=== PATIENT | female | born 1970 | race Two or more races ===

== ENCOUNTER 2018-09-18 14:21 | Day surgery (SDC) | payer OTHER ==
[2018-09-18] VITALS (13 sets, daily range): BP systolic 108–136; BP diastolic 52–68; PULSE 84–124; RESP 13–26; Ht 144.8 cm; Wt 52.2 kg
[~2018-09-18] VITALS: Ht 144.8 cm; Wt 52.2 kg
--- NOTE | 2018-09-18 07:39 | HPN ---
Date/Time of Note Date/Time of Note DATE: 09/18/18 TIME: 07:39 Interval H&P Admission Note Pt. seen H&P reviewed: No system changes IHSAN LOZANO MD Sep 18, 2018 07:39
[~2018-09-18 14:21] MED LIST: EPHEDrine 50 MG INJ ONE; PROPOFOL 200 MG INJ ONE; ROCURONIUM 50 MG INJ ONE; SEVOFLURANE 15 MIN ONE
[2018-09-18] MEDS ORDERED: LISI10TA2 PO (14:28)
[2018-09-18] MEDS ORDERED: HYDR25TA6 PO (14:29)
[2018-09-18] MEDS ORDERED: BUPR-75 PO (14:29)
[2018-09-18] MEDS ORDERED: ESCI10TA PO (14:30)
[2018-09-18] MEDS ORDERED: ARIP2TAB17 PO (14:32)
--- NOTE | 2018-09-18 16:14 | PREAC ---
Date/Time of Note Date/Time of Note DATE: 09/18/18 TIME: 16:12 Anesthesia Eval and Record Evaluation Time Pre-Procedure Interview DATE: 09/18/18 TIME: 16:12 Age 48 Sex female NPO: 8 hrs Preoperative diagnosis Rt Trimalleolar Ankle Planned procedure Rt ankle Arthroscopy, ORIF Past Medical History Past Medical History: Includes Cardio: HTN Surgery & Anesthesia Issues No known issue Meds Anticoagulation: No Beta Jamie within 24 hr: No Reason Beta Jamie not given: Pt. not on B-Jamie Reported Medications Aripiprazole* (Abilify*) 2 Mg Tablet, 1 MG PO DAILY, #30 TAB 09/18/18 Escitalopram Oxalate* (Lexapro*) 10 Mg Tablet, 10 MG PO DAILY, #30 TAB 09/18/18 Bupropion Hcl* (Wellbutrin XL*) 150 Mg Tab.sr.24h, 150 MG PO DAILY, TAB.SA 09/18/18 Hydrochlorothiazide* (Hydrochlorothiazide*) 25 Mg Tab, 25 MG PO DAILY, #30 TAB 09/18/18 Lisinopril* (Lisinopril*) 10 Mg Tablet, 10 MG PO DAILY, #30 TAB 09/18/18 Meds reviewed: Yes Allergies Coded Allergies: No Known Allergy (Unverified , 09/18/18) Allergies Reviewed: Yes Labs/Studies Labs Reviewed: Reviewed by anesthesiologist test: Negative Studies: ECG Pre-procedure Exam Last vitals Vital Signs Date Temp Pulse Resp B/P (MAP) Pulse Ox O2 O2 Flow FiO2 Time Delivery Rate 09/18/18 99.0 87 16 111/66 100 Room Air 15:15 (81) Airway: Adequate mouth opening, Adequate thyromental dist Mallampati: Mallampati II Teeth: Normal Lung: Normal Heart: Normal ASA Physical Status ASA physical status: 2 Emergency: None Planned Anesthetic General/MAC: LMA Planned Pain Management Single shot nerve block, Parenteral pain med Pre-operative Attestations Prior to commencing anesthesia and surgery, the patient was re-evaluated, there was verification of: *The patient's identity *The results of appropriate recent lab work and preoperative vital signs *The above evaluation not changing prior to induction *Anesthetic plan, risk benefits, alternative and complications discussed with patient/family; questions answered; patient/family understands, accepts and wishes to proceed. ISABELLE KNUTSON MD Sep 18, 2018 16:14
[2018-09-18] MEDS ORDERED: ROPIVACAINE 0.5 % 30 ML VIAL ONE (16:16)
[2018-09-18] MEDS ORDERED: MIDAZOLAM 1 MG/ML 2 ML INJ ONE (16:16)
[2018-09-18] MEDS ORDERED: FENTAnyl 50 MCG/ML VIAL ONE ×2 (16:16→21:07)
[2018-09-18] MEDS ORDERED: ONDANSETRON 4 MG INJ ONE (19:24)
[2018-09-18] MEDS ORDERED: METOCLOPRAMIDE 10 MG INJ ONE (19:24)
[2018-09-18] MEDS ORDERED: DEXAMETHASONE 4 MG/ML 5 ML INJ ONE (19:25)
[2018-09-18] MEDS ORDERED: KETOROLAC 30 MG INJ ONE (19:25)
[2018-09-18] MEDS ORDERED: ONDANSETRON 4 MG INJ IV PRN (21:30)
[2018-09-18] MEDS ORDERED: EPHEDrine SULFATE 50 MG/5 ML SYG IV PRN (21:30)
[2018-09-18] MEDS ORDERED: OXYCODONE/ACETAMINOPHEN (5/325) TAB PO PRN ×2 (21:30)
[2018-09-18] MEDS ORDERED: LABETALOL HCL 20MG INJ IV PRN (21:30)
[2018-09-18] MEDS ORDERED: METOCLOPRAMIDE 10 MG INJ IV PRN (21:30)
[2018-09-18] MEDS ORDERED: HYDROmorphONE 1 MG/5 ML IV SYRINGE IV PRN ×3 (21:30)
[2018-09-18] MEDS ORDERED: MEPERIDINE 25 MG INJ IV PRN (21:30)
[2018-09-18] MEDS ORDERED: hydrALAzine 20 MG INJ IV PRN (21:30)
[2018-09-18] MEDS ORDERED: DIPHENHYDRAMINE 50 MG INJ IV PRN (21:30)
[2018-09-18] MEDS ORDERED: FENTAnyl 50 MCG/ML VIAL IV PRN ×3 (21:30)
[2018-09-18] MEDS ORDERED: CEFAZOLIN 1 GM INJ ONE (21:49)
[2018-09-18] MEDS ORDERED: NEOMYC/POLYMYX/BACIT 30 GM OINT ONE (22:01)
[2018-09-18] MEDS ORDERED: NEOSTIGMINE 3 MG/3 ML SYRINGE ONE (22:05)
[2018-09-18] MEDS ORDERED: GLYCOPYRROLATE 0.4 MG INJ ONE (22:05)
[2018-09-18] MEDS ORDERED: POLYMYXIN/BACITRACIN 1L IRRIG IRR ONE (22:39)
--- NOTE | 2018-09-18 22:44 | PAC ---
Date/Time of Note Date/Time of Note DATE: 09/18/18 TIME: 22:43 Post-Anesthesia Notes Post-Anesthesia Note Last documented vital signs Vital Signs Date Temp Pulse Resp B/P (MAP) Pulse Ox O2 O2 Flow FiO2 Time Delivery Rate 09/18/18 99.0 87 16 111/66 100 Room Air 22:45 (81) Activity: WNL Respiratory function: WNL Cardiovascular function: WNL Mental status: Baseline Pain reasonably controlled: Yes Hydration appropriate: Yes Nausea/Vomiting absent: Yes AYAD MALDONADO MD Sep 18, 2018 22:44
[2018-09-18] MEDS ORDERED: morphine 2 MG INJ IV PRN (23:00)
[2018-09-18] MEDS ORDERED: KETOROLAC 30 MG INJ IV SCH (23:00)
--- NOTE | 2018-09-18 23:02 | OPR ---
Date/Time of Note Date/Time of Note DATE: 09/18/18 TIME: 22:55 Operative Report Procedure Date: Sep 18, 2018 Preoperative Diagnosis Right ankle traumatic synovitis Right ankle distal tibial pilon and fibula fracture Right ankle syndesmotic disruption Postoperative Diagnosis Right ankle traumatic synovitis Right ankle distal tibial pilon and fibula fracture Right ankle syndesmotic disruption Operation/Procedure Performed Right ankle arthroscopy with extensive debridement Right ankle arthroscopy loose body removal Right ankle open reduction internal fixation of distal tibial pilon and fibula fracture Right ankle open reduction internal junction of syndesmotic disruption Right ankle application of amniotic membrane Surgeon Geovani Lozano MD Consulting Analyst None Anesthesia Type: general, other (Popliteal and abductor block) Anesthesiologist: AYAD MALDONADO MD Tourniquet Time: 135 minutes at 250 mmHg Estimated Blood Loss: minimal Transfusion none Specimen None Grafts/Implants Arthrex one third tubular plate x2 with screws Arthrex syndesmotic tight rope XP Arthrex 4.0 partially-threaded screw Arthrex amnion Complications none Pt Condition Post Procedure: stable Disposition: PACU Indications Patient is a 48-year female who sustained a right ankle distal tibial pilon and fibular fracture with syndesmotic rupture approximately 2 and 3 weeks ago. Given the displacement of the fracture the patient was indicated for surgical fracture fracture fixation. Risk Note: Patient was explained the risks and benefits of surgery and the patient's [place] including not limited to infection, bleeding, injury to blood vessels, nerves, ligaments or tendons. Risks of anesthesia, deep vein thrombosis and need for reduce future surgery. Patient acknowledged these risk by signing the surgical consent form. Procedure Description The patient was met in the preoperative holding area, marked with the correct operative extremity confirmed with both patient and consent. The patient was then brought back in the operative theater, placed supine on operative table, given preoperative antibiotics and preoperative regional block anesthesia. The patient was then placed in the arthroscopic thigh vidales with all bony prominences well padded with a nonsterile tourniquet placed on the operative extremity. The patient was then prepped and draped in the normal sterile fashion. All parties in the room did a timeout and everyone agreed it was the correct patient, and extremity and procedure. Initial distraction was placed across the joint and the superficial peroneal nerve had been marked out prior to distraction, and using extreme caution to avoid any injury to the neurovascular structures, the anteromedial, anterolateral, and posterolateral portals were created in the standard fashion. The arthroscope was brought into the ankle and a 21-point exam was performed showing extensive hemorrhagic scar tissue and synovitis in the ankle with extensive scar tissue in both the medial, lateral, posterior and anterior gutters. Also noted was a 1.05 cm of loose body that was found in the posterior lateral aspect of the ankle, which was removed during the case. The syndesmosis was extensively debrided. Then continued with thorough debridement of the anterior medial, lateral, posterior and anterior gutters. There was extensive posterior malleolar fracture with articular disruption seen at the fracture . the ankle was irrigated thoroughly with normal saline and the arthroscopes were removed. At this point, the thigh vidales was removed and the patient was well padded under both extremities and patient was then reprepped and draped, and all gloves and instruments were changed. Attention was then turned initially to the distal fibular fracture. An incision was made over the the fibula. The incision was taken down to the fibula with care taken to avoid injury to the neurovascular structures. The fracture was identified and reduced and fixated with a distal fibular plate and fibula was reduced and held out to show that there was fibular length and alignment and rotation had been re-achieved. Once this was shown, the wound was irrigated thoroughly. A manual external rotation stress xray was performed showing syndesmosis widening. A syndesmotic tightrope was then placed across the joint to reduce the syndesmosis. Attention was then brought over to the posterior medial aspect of the ankle and incision was taken down over the posterior medial aspect of the ankle where there was great care taken to avoid any injury to the surrounding neurovascular structures which were identified and retracted and protected throughout the case. The posterior medial tibial plafond fracture was identified and irrigated of all hematoma and callus and then reduced. It was then treated in an antiglide fashion with a one third tubular plate. The direct posterior malleolus fracture was then further reduced and held in position and an anterior to posterior partially-threaded cannulated screw was then placed with protection of the neurovascular structures anterior. The fracture was shown to be well reduced at that time in both AP, mortise and lateral position. Tourniquet was brought down and hemostasis was achieved. The wounds were irrigated thoroughly. Arthrex amnion membrane was then placed over the posterior medial tibial plafond fracture and distal fibula fracture. There is autograft from the fibula placed at the area of comminution in the midshaft of the fibula. All wounds were thoroughly irrigated and closed with initially 2-0 Vicryl, followed by 3-0 Monocryl followed by 3-0 nylon in a vertical mattress fashion. Portal sutures placement of 4-0 nylon in a vertical mattress. all wounds were dressed with Xeroform, antibiotic ointment, 4 x 4s, 5 ABDs were placed and the patient was placed in a well-padded short leg splint. All sponge and needle counts were correct and patient was taken to the PACU in stable condition where her toes were warm and well-perfused. GEOVANI LOZANO MD Sep 18, 2018 23:02
== END 2018-09-19 | disposition home or self-care (01) ==
LOC: SDS 14:21
PROVIDERS: ATTEND Orthopaedic Surgery
DX: S82.871D Displaced pilon fracture of right tibia, subsequent encounter for closed fracture with routine healing (principal); X58.XXXD Exposure to other specified factors, subsequent encounter; M65.871 Other synovitis and tenosynovitis, right ankle and foot
CPT/HCPCS: 29892; 29898; 73610; 82306; 84703; C1713; J0690; J1100; J1885; J2250; J2405; J2710; J2765; J2795; J3010